=== PATIENT | female | born 1930 | race Caucasian/White ===

== ENCOUNTER 2017-03-03 16:55 | Inpatient (IN) | payer OTHER ==
[~2017-03-03] VITALS: Ht 151.1 cm; Wt 87.8 kg
[~2017-03-03 16:55] MED LIST: ASPI-435 PO; BRIM0.1S OPB; CHOL100027 PO; CITA20TA4 PO; CODCAP4 PO; LOVA20TA4 PO; LSN25 PO; PROMSYP2 PO; PRT/20 PO; TIMO0.2534 OPB; TNR25 PO
[2017-03-03] MEDS ORDERED: LATA0.5S OP (17:12)
--- NOTE | 2017-03-03 17:33 | EMERGENCY ROOM VISIT NOTE ---
History Report prepared by Simi: Iraida Mayo Under the Supervision of: Dr. Michelle Mina D.O. First contact with patient: 17:09 Chief Complaint: CARDIAC ASSESSMENT Stated Complaint: CHEST DISCOMFORT, AFIB Nursing Triage Summary: Patient arrived to [facility] via ALS from [place]. Per EMS "She came to the station today, asking us to check her blood pressure. She told us that she hasn't been feeling herself today and thought that her blood pressure was high. Upon assessment, her BP was elevated and she was in atrial fibrillation. She does not have a history of a.fib. She was pale, clammy and complaining of some chest discomfort so Dr. Cardoso requested we bring her here." History of Present Illness The patient is a 86 year old female who presents to the Emergency Room with complaints of constant chest pressure beginning yesterday. The patient notes left arm pain beginning yesterday. She reports increased swelling in her legs, a headache, and "hot flashes" beginning yesterday. She also reports leg hand numbness when she reads a book or the newspaper. Patient in room with her daughter. The patient went to EMS in [place] to get her blood pressure checked. Per nursing note, EMS stated the patient's blood pressure was high and she was in atrial fibrillation. Per nursing note, EMS stated the patient was pale, clammy and complaining of some chest discomfort so Dr. Cardoso requested they bring the patient to the ED. The patient states she was on Plavix a couple years ago because she reports she had "a spot on her brain". She recently had a CT of her head to check the spot and she reports it was unchanged. She was stopped on the Plavix because it was causing her GI problems. Presently, the patient only takes a baby aspirin daily. The patient saw her PCP a month ago and she states her heart and everything was normal. The patient has a history of fibromyalgia and arthritis. She denies any cardiac history besides she believes she was once told she had a possible heart murmur. Pt denies headache, change in vision, fevers, shortness of breath, nausea, vomiting, diarrhea, pain with urination, and melena. Patient is a poor and difficult historian. Source of History: patient Onset: yesterday Position: chest Quality: pressure Timing: constant Associated Symptoms: + headache, + diaphoresis, + chest pain, + numbness, No fevers, No SOB, No nausea, No vomiting, No diarrhea, No urinary symptoms Review of Systems See HPI for pertinent positives & negatives. A total of 10 systems reviewed and were otherwise negative. Past Medical & Surgical Medical Problems: (1) Atrial fibrillation, new onset (2) GERD (gastroesophageal reflux disease) Family History FH: [place] (myocardial infarction) Social History Smoking Status: Never Smoker Marital Status: Occupation Status: retired Current/Historical Medications Scheduled Aspirin (Aspirin 81), 81 MG PO DAILY Atorvastatin (Lipitor), 20 MG PO DAILY Carvedilol (Coreg), 1 TAB PO BID Cholecalciferol (Vitamin D 1000 Unit), 3,000 INTER.UNIT PO DAILY Citalopram Hydrobromide (Citalopram Hydrobromide), 20 MG PO DAILY Cod Liver Oil (Cod Liver Oil), 1 CAP PO DAILY Fluticasone Propionate (Nasal) (Flonase Allergy Relief), 2 SPRAYS KATINA DAILY Latanoprost (Xalatan 0.005% Oph Eugenia), 1 DROPS OP HS Lisinopril (Prinivil), 1 TAB PO DAILY Meloxicam (Mobic), 1 TAB PO DAILY Methimazole (Methimazole ), 5 MG PO TID Pantoprazole (Protonix), 20 MG PO DAILY Timolol Maleate 0.5% Oph (Timoptic 0.5% Oph), 1 DROP OPB BID Valacyclovir (Valtrex), 1 TAB PO DAILY Scheduled PRN Albuterol Hfa (Ventolin Hfa), 2 PUFFS INH Q6H PRN for SOB/Wheezing Tramadol (Ultram), 50 MG PO Q6H PRN for Pain Allergies Coded Allergies: Codeine (Verified Adverse Reaction, Intermediate, HALLUCINATION, 03/03/17) Morphine and Related (Verified Adverse Reaction, Intermediate, HALLUCINATION, 03/03/17) Physical Exam Vital Signs Date Time Temp Pulse Resp B/P (MAP) Pulse Ox O2 Delivery O2 Flow Rate FiO2 03/03/17 18:03 102 22 173/110 97 Room Air 03/03/17 17:25 78 03/03/17 16:55 97 Room Air 03/03/17 16:55 36.5 87 20 196/141 97 Room Air 1/22/18 16:55 97 Room Air Physical Exam GENERAL: alert, well appearing, well nourished, no distress, non-toxic EYE EXAM: normal conjunctiva, PERRL and EOM's grossly intact OROPHARYNX: no exudate, no erythema, lips, buccal mucosa, and tongue normal and mucous membranes are moist NECK: supple, no nuchal rigidity, no adenopathy, non-tender LUNGS: Clear to auscultation. Normal chest wall mechanics HEART: Irregular rhythm. no gallop/rub. Soft RIGOBERTO. ABDOMEN: abdomen soft, non-tender, normo-active bowel sounds, no masses, no rebound or guarding. BACK: Back is symmetrical on inspection and there is no deformity, no midline tenderness, no CVA tenderness. SKIN: no rashes and no bruising UPPER EXTREMITIES: upper extremities are grossly normal. LOWER EXTREMITIES: No pitting edema. NEURO EXAM: Normal sensorium, cranial nerves II-XII grossly intact, normal speech, no gross weakness of arms, no gross weakness of legs. Medical Decision & Procedures ER Provider Diagnostic Interpretation: Radiology results have been interpreted by the radiologist and reviewed by me. CHEST ONE VIEW PORTABLE FINDINGS: Cardiac silhouette is again enlarged, unchanged. Atherosclerosis of the aorta. There is no pneumothorax, pleural effusion, focal airspace consolidation or overt pulmonary edema. Chronic mild blunting of the bilateral costophrenic angles, likely secondary to atelectasis/scarring. Bones of the chest appear grossly intact. IMPRESSION: Cardiomegaly without acute process. The above report was generated using voice recognition software. It may contain grammatical, syntax or spelling errors. Electronically signed by: Ivan Lewis M.D. Laboratory Results Test 03/03/17 16:30 03/03/17 17:55 03/03/17 18:11 Total Bilirubin 1.1 mg/dl (0.2-1) Aspartate Amino Transf (AST/SGOT) 21 U/L (15-37) Alanine Aminotransferase (ALT/SGPT) 24 U/L (12-78) Alkaline Phosphatase 93 U/L (45-117) Pro-B-Type Natriuretic Peptide 978 pg/ml (0-1800) Total Protein 6.9 gm/dl (6.4-8.2) Albumin 3.5 gm/dl (3.4-5.0) Globulin 3.4 gm/dl (2.5-4.0) Albumin/Globulin Ratio 1.0 (0.9-2) Chemistry Specimen Hemolysis Prothrombin Time 10.1 SECONDS (9.0-12.0) Prothromb Time International Ratio 1.0 (0.9-1.1) D-Dimer 340 ug/L FEU (0-500) Urine Color YELLOW Urine Appearance CLEAR (CLEAR) Urine pH 7.5 (4.5-7.5) Urine Specific Winn 1.013 (1.000-1.030) Urine Protein NEG (NEG) Urine Glucose (UA) NEG (NEG) Urine Ketones NEG (NEG) Urine Occult Blood NEG (NEG) Urine Nitrite NEG (NEG) Urine Bilirubin NEG (NEG) Urine Urobilinogen NEG (NEG) Urine Leukocyte Esterase SMALL (NEG) Urine WBC (Auto) 5-10 /hpf (0-5) Urine RBC (Auto) 5-10 /hpf (0-4) Urine Hyaline Casts (Auto) 0 /lpf (0-5) Urine Epithelial Cells (Auto) >30 /lpf (0-5) Urine Bacteria (Auto) NEG (NEG) Laboratory results per my review. Medications Administered Medications (Trade) Dose Ordered Sig/Hao Route Start Time Stop Time Status Last Admin Dose Admin Metoprolol Tartrate (Lopressor Iv) 2.5 mg Q6 PRN IV 03/03/17 19:15 04/02/17 19:14 03/03/17 22:29 2.5 MG ECG Indication: chest pain Rate (beats per minute): 85 Rhythm: atrial fibrillation Findings: no acute ischemic change, other (normal axis, normal QRS, normal QTC) Change: EKG interpreted by me. ED Course 1710: The patient was evaluated in room B7. A complete history and physical exam was performed. 1841: I reviewed the patient's case with Dr. Hazel. He will evaluate the patient for further management. Medical Decision Differential diagnosis: Etiologies such as cardiac ischemia, aortic dissection, pulmonary embolism, pneumonia, pneumothorax, musculoskeletal, infections, pericarditis, myocarditis , esophageal rupture, gastrointestinal, as well as others were entertained. Pt well appearing here despite complaints. VS stable, HR rate controlled despite new a.fib. Discussed with pt need for additional evaluation, she verbalized understanding. Did not start anticoagulation empirically as pt with hx of GI bleed on plavix and would want hospitalist and cardiology input and discussion with family. Likely pt partially rate controlled due to regular use of atenolol. Doubt occult infectious etiology. Hx of thyroid dysfunction. No recurrent pain while here. No increased WOB, denies SOB. No evidence of CVA. Medication Reconcilliation Current Medication List: was personally reviewed by me Blood Pressure Screening Patient's blood pressure: Elevated blood pressure Blood pressure disposition: Referred to PCP (evaluated further by hospitalist) Consults Time Called: 1838 Consulting Physician: Dr. Hazel Returned Call: 1841 I reviewed the patient's case with Dr. Hazel. He will evaluate the patient for further management. Impression Primary Impression: New onset atrial fibrillation Additional Impression: Chest pain Scribe Attestation The scribe's documentation has been prepared under my direction and personally reviewed by me in its entirety. I confirm that the note above accurately reflects all work, treatment, procedures, and medical decision making performed by me. Departure Information Dispostion Being Evaluated By Hospitalist Prescriptions Fluticasone Propionate (Nasal) (Flonase Allergy Relief) 50 Mcg/Act Spr 2 SPRAYS KATINA DAILY, #1 Prov: Bandar Klein MD 03/03/17 Meloxicam (MOBIC) 15 Mg Tab 1 TAB PO DAILY for 30 Days, #30 TAB 1 Refill Prov: Bandar Klein MD 03/03/17 Tramadol (Ultram) 50 Mg Tab 50 MG PO Q6H Y for Pain, #30 TAB Prov: Bandar Klein MD 03/03/17 Albuterol Hfa (VENTOLIN HFA) 200 Puffs/40113 Mcg Aers 2 PUFFS INH Q6H Y for SOB/Wheezing, #1 INHALER Prov: Bandar Klein MD 03/03/17 Methimazole (Methimazole ) 5 Mg Tab 5 MG PO TID, #30 Prov: Bandar Klein MD 03/03/17 Carvedilol (COREG) 6.25 Mg Tab 1 TAB PO BID for 30 Days, #60 TAB Prov: Bandar Klein MD 03/03/17 Lisinopril (PRINIVIL) 10 Mg Tab 1 TAB PO DAILY for 30 Days, #30 TAB Prov: Bandar Klein MD 03/03/17 Atorvastatin (LIPITOR) 20 Mg Tab 20 MG PO DAILY, #30 TAB Prov: Bandar Klein MD 03/03/17 Valacyclovir (Valtrex) 500 Mg Tab 1 TAB PO DAILY for 30 Days, #30 TAB Prov: Bandar Klein MD 03/03/17 Referrals Taz Garcia M.D. (PCP) Patient Instructions My [facility] Problem Qualifiers Additional Impression: Chest pain Chest pain type: unspecified Qualified Codes: R07.9 - Chest pain, unspecified
[2017-03-03 17:35] LABS: BASO % 0.1 %; BASO ABS # 0.01 K/uL (0-0.2); EOS % 2.4 %; EOS ABS # 0.17 K/uL (0-0.5); HEMATOCRIT 42.5 % (37-47); HEMOGLOBIN 14.7 g/dL (12.0-16.0); IG# 0.01 K/uL (0.00-0.02); LYMPH % 33.5 %; LYMPH ABS # 2.38 K/uL (1.2-3.4); MEAN CELL VOLUME 92.4 fL (80-100); MEAN CORPUSCULAR HGB CONC 34.6 g/dl (32-36); MEAN PLATELET VOLUME 10.9 fL (7.4-10.4); MONO % 10.7 %; MONO ABS # 0.76 K/uL (0.11-0.59); NEUT % 53.2 %; NEUT ABS # 3.77 K/uL (1.4-6.5); PLATELET COUNT 207 K/uL (130-400); RED CELL DISTRIBUTION WIDTH CV 13.5 % (11.5-14.5); RED CELL DISTRIBUTION WIDTH SD 45.6 fL (36.4-46.3)
--- NOTE | 2017-03-03 17:44 | DIAGNOSTIC IMAGING REPORT ---
CHEST ONE VIEW PORTABLE HISTORY: 86 years-old Female chest pain acute atypical chest pain with atrial fibrillation COMPARISON: Chest radiograph 08/16/2013 TECHNIQUE: Portable AP view of the chest FINDINGS: Cardiac silhouette is again enlarged, unchanged. Atherosclerosis of the aorta. There is no pneumothorax, pleural effusion, focal airspace consolidation or overt pulmonary edema. Chronic mild blunting of the bilateral costophrenic angles, likely secondary to atelectasis/scarring. Bones of the chest appear grossly intact. IMPRESSION: Cardiomegaly without acute process. The above report was generated using voice recognition software. It may contain grammatical, syntax or spelling errors. Electronically signed by: Ivan Lewis M.D. 03/03/2017 5:43 PM Dictated Date/Time: 03/03/2017 5:41 PM
[2017-03-03 17:55] LABS: ALBUMIN 3.5 gm/dl (3.4-5.0); ALT/SGPT 24 U/L (12-78); AST/SGOT 21 U/L (15-37); BLOOD UREA NITROGEN 16 mg/dl (7-18); CARBON DIOXIDE 29 mmol/L (21-32); CREATININE 0.79 mg/dl (0.60-1.20); GLUCOSE 128 mg/dl (70-99); POTASSIUM 4.2 mmol/L (3.5-5.1); SODIUM 136 mmol/L (136-145)
[2017-03-03 18:19] LABS: ALKALINE PHOSPHATASE 93 U/L (45-117); TOTAL PROTEIN 6.9 gm/dl (6.4-8.2)
[2017-03-03] MEDS ORDERED: NITROGLYCERIN 0.4 MG SL PER TAB CHARGE SL PRN (19:15)
[2017-03-03] MEDS ORDERED: ONDANSETRON INJ 2 MG/ML 2 ML VIAL IV PRN (19:15)
[2017-03-03] MEDS ORDERED: ACETAMINOPHEN 325 MG TAB PO PRN (19:15)
[2017-03-03] MEDS ORDERED: POLYETHYLENE (MIRALAX) 17 GM PACK PO PRN (19:15)
[2017-03-03] MEDS ORDERED: METOPROLOL TARTRATE 1 MG/ML VIAL IV PRN (19:15)
[2017-03-03] MEDS ORDERED: ALUMINUM/MAGNESIUM/SIMETH (MAALOX MAX) 30 ML UDC PO PRN (19:15)
[2017-03-03] MEDS ORDERED: ATOR-22 PO (19:22)
[2017-03-03] MEDS ORDERED: MELO15TA10 PO (19:22)
[2017-03-03] MEDS ORDERED: VALA500T60 PO (19:22)
[2017-03-03] MEDS ORDERED: LISI10TA PO (19:22)
[2017-03-03] MEDS ORDERED: METH-589 PO (19:22)
[2017-03-03] MEDS ORDERED: FLUT0.15 NAE (19:22)
[2017-03-03] MEDS ORDERED: CARV6.252 PO (19:22)
[2017-03-03] MEDS ORDERED: TRAM-10 PO (19:22)
[2017-03-03] MEDS ORDERED: VNTHFA/IN INH (19:22)
[2017-03-03] MEDS ORDERED: ALBUTEROL HFA 8 GM INHALER INH PRN (19:30)
[2017-03-03] MEDS ORDERED: TRAMADOL HCL 50 MG TAB PO PRN (19:30)
--- NOTE | 2017-03-03 20:16 | HISTORY & PHYSICAL EXAMINATION ---
DATE OF ADMISSION: 03/03/2017 CHIEF COMPLAINT: New onset AFib. HISTORY OF PRESENT ILLNESS: This 86-year-old female with past medical history significant for GERD, fibromyalgia, metabolic syndrome, general osteoarthrosis, history of TIAs, hyperglycemia, diaphragmatic hernia, glaucoma, hyperlipidemia, obesity, history of sinus polyps, history of depression, history of hypertension, history of multinodular goiter, hyperthyroidism, herpes simplex infection, presents with not feeling well since last 2 days, having tightness in her lower chest, dull aching type, with also some tenderness in her breast region, went to the clinic and was sent here and was found to have new onset atrial fibrillation. Blood pressure is running high but heart rates under control. Except for the band-like pain, tightness in her lower chest, denies any other chest pain or shortness of breath. Occasionally has some cough attributes it to dry mouth.Has some headaches, . No blurred vision. No nausea, no vomiting. No runny nose, no earache, no sore throat, no difficulty swallowing. No abdominal pain. Appetite is okay. Normal bowel and bladder movements. Ambulates with the help of walker at home. Lives alone but daughters and sons check on her and she also has an aide coming to help her. Currently resting comfortably. ALLERGIES: MORPHINE AND LATEX. PAST MEDICAL HISTORY: As mentioned above. PAST SURGICAL HISTORY: EGD with biopsies, hemorrhoid ligations, EGD biopsy of the thyroid, partial hysterectomy, cataract surgeries, cholecystectomy, umbilical hernia repair. MEDICATIONS: The patient is on Celexa 20 mg p.o. daily, Protonix 20 mg p.o. daily, valacyclovir 500 mg p.o. daily, atorvastatin 20 mg p.o. daily, lisinopril 10 mg p.o. daily, vitamin D 2000 units p.o. daily, Coreg 6.25 mg p.o. b.i.d., methimazole 5 mg p.o. t.i.d., albuterol 2 puffs every 6 hours p.r.n., tramadol 50 mg p.o. q. 6 hours p.r.n., meloxicam 50 mg p.o. daily, Flonase 2 sprays each nostril daily, latanoprost daily, timolol 1 drop in both eyes twice daily, aspirin 81 mg p.o. daily, cod liver oil 1000 mg p.o. daily. FAMILY HISTORY: Significant for brother had lung cancer. Sister has lung cancer, breast cancer, diabetes and ALS. SOCIAL HISTORY: . Never smoked. No alcohol use. No drug use. Currently lives alone but daughters and sons come and check on her and has an aide at home. REVIEW OF SYMPTOMS: As per HPI. Rest of review of symptoms negative. PHYSICAL EXAMINATION: GENERAL: The patient is obese, not in distress. VITAL SIGNS: Temperature 36.5, pulse 72-102, respiratory rate 22, blood pressure 173/110, oxygen 97% on room air. HEENT: No pallor, no icterus. Pupils equal, round and reactive to light. NECK: No JVD, no neck masses, no carotid bruits. CARDIOVASCULAR: S1, S2 heard, irregular rhythm, no murmur, no gallop. RESPIRATORY: Clear to auscultation bilaterally. No wheezing, no crackles. ABDOMEN: Soft. Bowel sounds present. Nontender. No distention. CENTRAL NERVOUS SYSTEM: Cranial nerves II-XII grossly intact. Nonfocal. EXTREMITIES: No lower extremity edema present. Some calf tenderness. LABORATORY DATA: WBC 7.1, hemoglobin 14.7, hematocrit 42.5, platelets 207. Sodium 136, potassium 4.2, chloride 103, bicarbonate 29, BUN 16, creatinine 0.7, serum glucose 128, calcium 9, magnesium 2.1, total bilirubin 1.1, AST 21, ALT 24, alkaline phosphatase 93, troponin I less than 0.015. BNP 978. TSH 0.084. PT 10.1, INR 1. D-dimer 340. Urinalysis positive for small leukocyte esterase. Chest x-ray, cardiomegaly without acute process. EKG, AFib with rate of 85. No acute ST changes seen. ASSESSMENT AND PLAN: This is an 86-year-old female who presents with new onset atrial fibrillation. 1. New onset atrial fibrillation. The patient is already on Coreg, her rate is under control, which will be continued. The patient has a history of GI bleeds in the past, about 2 years ago. The patient and daughter are okay with low-dose heparin and starting on Coumadin. The patient to discuss about anticoagulation with cardiology in a.m. We will follow the echocardiogram. Monitor on tele floor. 2. Some chest tightness, like a band in the lower part of the chest, involving also the breast. Follow serial cardiac enzymes and echocardiogram. If there is concern, we will do further imaging studies. 3. The patient has depression and fibromyalgia. Continue Celexa. 4. History of hypothyroidism and multinodular goiter, on methimazole. Follow TSH and free T4 levels. 5. History of hypertension. Continue Coreg and lisinopril. Currently, blood pressure is running high. We will place on IV Lopressor p.r.n. 6. History of herpes virus infection. Continue valacyclovir. 7. History of gastroesophageal reflux disease. Continue Protonix. 8. Hyperlipidemia. Continue statin. 9. Sinusitis. Continue Flonase. 10. Hyperglycemia. We will follow HbA1c levels. 11. Lower extremity edema. We will check for any DVT. Deep venous thrombosis prophylaxis, on IV heparin. DISPOSITION: Admit to tele floor. PT and OT prior to discharge planning. Level 1 full code. Social service to help with discharge planning. [facility]
[2017-03-03] MEDS ORDERED: HEPARIN IV LOW DOSE NO BOLUS SCH (20:20)
[2017-03-03] MEDS ORDERED: HEPARIN 25000 UNIT/500 ML D5W ONE (20:31)
[2017-03-03 20:58] LABS: PTT PATIENT 27.1 SECONDS (21.0-31.0)
--- NOTE | 2017-03-03 21:30 | DIAGNOSTIC IMAGING REPORT ---
VENOUS DOPPLER LWR EXT BILA HISTORY: Pain. Edema. DVT? COMPARISON STUDY: None. FINDINGS: There is normal compressibility, flow, and augmentation within the bilateral lower extremity deep venous systems. IMPRESSION: No DVT within the right or left lower extremity. The above report was generated using voice recognition software. It may contain grammatical, syntax or spelling errors. Electronically signed by: Daniele Austin M.D. 03/03/2017 9:29 PM Dictated Date/Time: 03/03/2017 9:28 PM
[2017-03-03 21:39] VITALS: BP 164/78; PULSE 99; TEMP 37; O2SAT 94
[2017-03-03 21:40] VITALS: BP 164/78; PULSE 99; TEMP 37; O2SAT 94; Ht 151.1 cm; Wt 87.8 kg
[2017-03-03] MEDS: HEPARIN 25,000 UNIT/500ML D5W 500 ML IV PRN (22:21)
[2017-03-03] MEDS: METHIMAZOLE 5 MG TAB PO SCH (22:37)
[2017-03-03] MEDS: CARVEDILOL 6.25 MG TAB PO SCH (22:37)
[2017-03-03] MEDS: LATANOPROST 0.005% OP SOLN 2.5 ML BTL OP SCH (22:38)
[2017-03-03] MEDS: TIMOLOL MALEATE 0.5% OP SOLN 5 ML BTL OPB SCH (22:38)
[2017-03-04] VITALS (7 sets, daily range): BP systolic 126–147; BP diastolic 64–86; PULSE 77–86; TEMP 36.5–37; O2SAT 94–96
[2017-03-04] MEDS ORDERED: SODIUM CHLORIDE 0.65% NA SOLN 45 ML (OCEAN) PRN (00:45)
[2017-03-04 05:12] LABS: BASO % 0.2 %; BASO ABS # 0.01 K/uL (0-0.2); EOS % 1.3 %; EOS ABS # 0.08 K/uL (0-0.5); HEMATOCRIT 39.4 % (37-47); HEMOGLOBIN 13.7 g/dL (12.0-16.0); IG# 0.01 K/uL (0.00-0.02); LYMPH % 30.9 %; LYMPH ABS # 1.93 K/uL (1.2-3.4); MEAN CELL VOLUME 91.4 fL (80-100); MEAN CORPUSCULAR HEMOGLOBIN 31.8 pg (25-34); MEAN CORPUSCULAR HGB CONC 34.8 g/dl (32-36); MONO % 10.7 %; MONO ABS # 0.67 K/uL (0.11-0.59); NEUT % 56.7 %; NEUT ABS # 3.55 K/uL (1.4-6.5); PLATELET COUNT 183 K/uL (130-400); RED CELL DISTRIBUTION WIDTH CV 13.3 % (11.5-14.5); RED CELL DISTRIBUTION WIDTH SD 44.6 fL (36.4-46.3); WHITE BLOOD COUNT 6.25 K/uL (4.8-10.8)
[2017-03-04 05:21] LABS: PTT PATIENT 38.3 SECONDS (21.0-31.0)
[2017-03-04 05:30] LABS: CALCIUM 8.5 mg/dl (8.5-10.1); CREATININE 0.59 mg/dl (0.60-1.20); POTASSIUM 3.9 mmol/L (3.5-5.1)
[2017-03-04] MEDS ORDERED: HEPARIN IV BOLUS 4,000 UNIT in SYRINGE 0 ML IV ONE (05:45)
[2017-03-04] MEDS: FLUTICASONE PROPIONATE NA SPR 16 GM BTL NAE SCH (08:28)
[2017-03-04] MEDS: TIMOLOL MALEATE 0.5% OP SOLN 5 ML BTL OPB SCH ×2 (08:29→20:13)
[2017-03-04] MEDS: METHIMAZOLE 5 MG TAB PO SCH ×3 (08:29→20:15)
[2017-03-04] MEDS: ATORVASTATIN 20 MG TAB PO SCH (08:30)
[2017-03-04] MEDS: CARVEDILOL 6.25 MG TAB PO SCH ×2 (08:30→20:15)
[2017-03-04] MEDS: CITALOPRAM 20 MG TAB PO SCH (08:30)
[2017-03-04] MEDS: ASPIRIN 81 MG ECTAB PO SCH (08:31)
[2017-03-04] MEDS: LISINOPRIL 10 MG TAB PO SCH (08:31)
[2017-03-04] MEDS: CHOLECALCIFEROL 1000 INTER.UNIT TAB PO SCH (08:31)
[2017-03-04] MEDS: PANTOprazole SOD 40 MG TAB PO SCH (08:31)
--- NOTE | 2017-03-04 08:35 | ECHOCARDIOGRAM REPORT ---
*NOTICE TO RECEIVING [employer] This information is strictly Confidential and protected under [place] law. [place] law prohibits you from making any further disclosure of this information unless further disclosure is expressly permitted by the written consent of the person to whom it pertains or is authorized by law. A general authorization for the release of medical or other information is not sufficient for this purpose. Hospital accepts no responsibility if the information is made available to any other person, INCLUDING THE PATIENT. Interpretation Summary * Name: MARK BRYANT Study Date: 03/04/2017 06:40 AM BP: 141/79 mmHg * Patient Location: [id number] HR: 77 * : 1930 (M/d/yyyy) Gender: Female Height: 59 in * Age: 86 yrs Ethnicity: [place] Weight: 200 lb * Ordering Physician: Bandar Klein * Referring Physician: Self, Referred * Performed By: Jacob Delatorre RCS * * Reason For Study: A-FIB * BSA: 1.8 m2 * -- Conclusions -- * Normal LV chamber size and wall thickness. * Normal LV systolic function, EF 60-65%. * No segmental left ventricular wall motion abnormalities are noted. * Diastolic dyfunction is present based on left atrial enlargement. * Aortic valve sclerosis mild, without significant aortic valvular stenosis. * Mild mitral regurgitation. * Mild tricuspid regurgitation. * Moderate left atrial enlargement. Procedure Details * A complete two-dimensional transthoracic echocardiogram was performed (2D, M-mode, Doppler and color flow Doppler). Left Ventricle * The left ventricle is normal in size. * There is normal left ventricular wall thickness. * Ejection Fraction = 60-65%. * Left ventricular systolic function is normal. * No segmental left ventricular wall motion abnormalities are noted. * The left ventricular wall motion is normal. Right Ventricle * The right ventricular cavity size is normal (basal dimension <4.2 cm in right ventricular apical 4-chamber view). * The right ventricular systolic function is normal as assessed by tricuspid annular plane systolic excursion (TAPSE) (normal >1.5 cm). Atria * The left atrium is moderately dilated. * Right atrial size is normal. * No ASD detected; PFO is not assessed. Mitral Valve * The mitral valve is normal in structure and function. Tricuspid Valve * The tricuspid valve anatomy is normal. * There is no tricuspid stenosis. * There is mild tricuspid regurgitation. Aortic Valve * The aortic valve is trileaflet. * Aortic valve sclerosis mild, without significant aortic valvular stenosis. * There is no significant aortic regurgitation. Pulmonic Valve * The pulmonary valve is not well seen, but the Doppler examination is normal without significant regurgitation or stenosis. Great Vessels * The aortic root is normal size. Pericardium/Pleural * There is no pericardial effusion. MMode 2D Measurements and Calculations IVSd 1.0 cm IVSs 1.2 cm LVIDd 4.8 cm LVIDs 3.2 cm LVPWd 0.94 cm LVPWs 1.2 cm IVS/LVPW 1.1 FS 33.2 % EDV(Teich) 107.7 ml ESV(Teich) 41.2 ml EF(Teich) 61.7 % EDV(cubed) 110.9 ml ESV(cubed) 33.0 ml EF(cubed) 70.2 % % IVS thick 18.9 % % LVPW thick 24.9 % LV mass(C)d 166.6 grams LV mass(C)dI 90.4 grams/m\S\2 LV mass(C)s 119.5 grams LV mass(C)sI 64.8 grams/m\S\2 SV(Teich) 66.5 ml SI(Teich) 36.1 ml/m\S\2 SV(cubed) 77.8 ml SI(cubed) 42.2 ml/m\S\2 Ao root diam 2.9 cm Ao root area 6.7 cm\S\2 ACS 1.4 cm LA dimension 5.2 cm asc Aorta Diam 3.0 cm LA/Ao 1.8 EDV(MOD-sp4) 58.6 ml ESV(MOD-sp4) 27.7 ml EF(MOD-sp4) 52.8 % EDV(MOD-sp2) 82.7 ml ESV(MOD-sp2) 24.7 ml EF(MOD-sp2) 70.2 % SV(MOD-sp4) 30.9 ml SI(MOD-sp4) 16.8 ml/m\S\2 SV(MOD-sp2) 58.0 ml SI(MOD-sp2) 31.5 ml/m\S\2 Doppler Measurements and Calculations MV E max dax 111.1 cm/sec MV P1/2t max dax 122.5 cm/sec MV P1/2t 77.6 msec MVA(P1/2t) 2.8 cm\S\2 MV dec slope 462.6 cm/sec\S\2 MV dec time 0.21 sec Ao V2 max 143.2 cm/sec Ao max PG 8.2 mmHg Ao max PG (full) 5.2 mmHg LV V1 max PG 3.0 mmHg LV V1 max 86.8 cm/sec PA V2 max 110.7 cm/sec PA max PG 4.9 mmHg TR max dax 318.7 cm/sec
[2017-03-04] MEDS ORDERED: NON-FORMULARY MEDICATION (Cod Liver Oil 1 CAP) PO SCH (09:00)
--- NOTE | 2017-03-04 09:55 | Cardiology Consultation ---
Cardiology Consultation Date of Consultation: Mar 04, 2017 Requesting Physician: Latoya Attending Phone Engineer: Jose G (Daniele Byrne PA-C) History of Present Illness Ms. Ko is an 86 year old female who is being seen at the request of Dr. Klein. Reason for consultation is new atrial fibrillation. Patient notes three weeks of constant band like discomfort from the center of her chest around her back bilaterally. Yesterday she developed left upper outer arm discomfort. While visiting at [facility] she decided to go to the ambulance center to get checked out. At the center she was found to be hypertension and in atrial fibrillation. It was recommended that she seek further care and thus she was transported to the [facility] ER via ambulance for further evaluation and treatment. She was seen in the ER by Dr. Mina and was admitted by Dr. Klein with new onset atrial fibrillation. She was admitted to telemetry started on low-dose heparin. Her heart rates have been well controlled on her home dose of carvedilol. (Daniele Byrne PA-C) Past Medical/Surgical History Problem List: Transient ischemic attack, 08/22/03 Mild bilateral internal carotid artery disease Hypertension Dyslipidemia Thyroid nodule, multinodular goiter Hyperthyroidism Vitamin D deficiency Osteoporosis Glaucoma Neuralgia and neuritis Irritable bowel syndrome Generalized anxiety disorder Depression Large sliding and paraesophageal hiatal hernia Gastroparesis Esophageal reflux Diverticulosis Cataract extraction Incarcerated umbilical hernia repair in 1999 Cholecystectomy Partial hysterectomy (Daniele Byrne PA-C) Family History FH: [place] (myocardial infarction) Mother at 90. Father at 96. One brother and one sister with lung cancer. (Daniele Byrne PA-C) FH: [place] (myocardial infarction) (Michi Araiza, D.[place]) Social History Nonsmoker. No alcohol. . Seven children. Smoking Status: Never Smoker Marital Status: Housing Status: lives alone Occupation: retired (Daniele Byrne PA-C) Review Of Systems General: Fibromyalgia. Arrthritis. No fever, chills, or soaking night sweats Endocrinology: Hypothyroidism. Goiter. On methimazole. Hyperglycemia. HEENT: Glasses. Cataracts. Glaucoma. Chronic sinusitis. Cardiovascular: See above. PAGE. No near syncope or syncope. Pulmonary: No hemoptysis. No history of asthma, COPD, emphysema, or PE. Gastrointestinal: See above. Skin: History of HSV. Musculoskeletal: Fibromyalgia. Arthritis. Uses a walker. Peripheral edema. Neurological: ? TIA versus CVA. No history of seizures Complete review of systems is as stated above, negative, or noncontributory. (Daniele Byrne PA-C) Allergies Coded Allergies: Codeine (Verified Adverse Reaction, Intermediate, HALLUCINATION, 03/03/17) Morphine and Related (Verified Adverse Reaction, Intermediate, HALLUCINATION, 03/03/17) Medications Reported Home Medications Medications Dose Route/Sig Max Daily Dose Days Date Category Flonase Allergy Relief (Fluticasone Propionate (Nasal)) 50 Mcg/Act Spr 2 Sprays KATINA DAILY 03/03/17 Rx Mobic (Meloxicam) 15 Mg Tab 1 Tab PO DAILY 30 03/03/17 Rx Ultram (Tramadol HCl) 50 Mg Tab 50 Mg PO Q6H PRN 03/03/17 Rx Ventolin Hfa (Albuterol) 200 Puffs/24003 Mcg Aers 2 Puffs INH Q6H PRN 03/03/17 Rx Methimazole (Methimazole) 5 Mg Tab 5 Mg PO TID 03/03/17 Rx Coreg (Carvedilol) 6.25 Mg Tab 1 Tab PO BID 30 03/03/17 Rx Prinivil (Lisinopril) 10 Mg Tab 1 Tab PO DAILY 30 03/03/17 Rx Lipitor (Atorvastatin Calcium) 20 Mg Tab 20 Mg PO DAILY 03/03/17 Rx Valtrex (Valacyclovir HCl) 500 Mg Tab 1 Tab PO DAILY 30 03/03/17 Rx Xalatan 0.005% Oph Eugenia (Latanoprost) 0.005 % Eugenia 1 Drops OP HS 03/03/17 Reported Cod Liver Oil 1 Cap Cap 1 Cap PO DAILY 08/16/13 Reported Vitamin D 1000 Unit (Cholecalciferol) 1,000 Unit Cap 3,000 Inter.unit PO DAILY 08/16/13 Reported Protonix (Pantoprazole Sodium) 20 Mg Tab 20 Mg PO DAILY 08/16/13 Reported Aspirin 81 (Aspirin) 81 Mg Tab 81 Mg PO DAILY 08/16/13 Reported Timoptic 0.5% Oph (Timolol Maleate) Soln 1 Drop OPB BID 08/16/13 Reported Citalopram Hydrobromide 20 Mg Tab 20 Mg PO DAILY 08/16/13 Reported (Daniele Byrne PA-C) Physical Exam Vital Signs (Last 8hrs): Last 8 Hrs Date Time Temp Pulse Resp B/P (MAP) Pulse Ox O2 Delivery O2 Flow Rate FiO2 03/04/17 08:14 36.7 86 18 144/71 (95) 95 Room Air 03/04/17 04:00 Room Air 03/04/17 03:03 36.8 77 17 141/79 (99) 94 Room Air General Appearance: Alert and Oriented x3. NAD. [place] HEENT: Normocephalic Atraumatic. PER. EOMI. Conjunctiva and sclera clear Neck: Supple. No carotid bruits noted. No overt JVD. Respiratory: Breath sounds clear to auscultation bilaterally. No w/r/r. Chest: There is reproducible chest wall and left upper arm pain with palpation. Cardiovascular: Irregularly irregular in the 70's. No murmur appreciated. PMI was not palpated. Abdomen: +BS. Soft. Nontender. No masses. Extremities: Minimal edema. Lymphedematous changes. no clubbing. No cyanosis. Distal pulses 2/4 bilaterally. Neuro: No focal deficits. Psychiatric: Normal affect. (Daniele Byrne PA-C) Data Last 24 Hours Test 03/03/17 16:30 03/03/17 17:55 03/03/17 18:11 03/04/17 03:00 White Blood Count 7.10 K/uL Red Blood Count 4.60 M/uL Hemoglobin 14.7 g/dL Hematocrit 42.5 % Mean Corpuscular Volume 92.4 fL Mean Corpuscular Hemoglobin 32.0 pg Mean Corpuscular Hemoglobin Concent 34.6 g/dl Platelet Count 207 K/uL Mean Platelet Volume 10.9 fL Neutrophils (%) (Auto) 53.2 % Lymphocytes (%) (Auto) 33.5 % Monocytes (%) (Auto) 10.7 % Eosinophils (%) (Auto) 2.4 % Basophils (%) (Auto) 0.1 % Neutrophils # (Auto) 3.77 K/uL Lymphocytes # (Auto) 2.38 K/uL Monocytes # (Auto) 0.76 K/uL Eosinophils # (Auto) 0.17 K/uL Basophils # (Auto) 0.01 K/uL RDW Standard Deviation 45.6 fL RDW Coefficient of Variation 13.5 % Immature Granulocyte % (Auto) 0.1 % Immature Granulocyte # (Auto) 0.01 K/uL Sodium Level 136 mmol/L Potassium Level 4.2 mmol/L Chloride Level 103 mmol/L Carbon Dioxide Level 29 mmol/L Anion Gap 4.0 mmol/L Blood Urea Nitrogen 16 mg/dl Creatinine 0.79 mg/dl Est Creatinine Clear Calc Drug Dose 52.7 ml/min Estimated GFR () 79.7 Estimated GFR (Non- 68.7 BUN/Creatinine Ratio 20.8 Random Glucose 128 mg/dl Calcium Level 9.0 mg/dl Magnesium Level 2.1 mg/dl Total Bilirubin 1.1 mg/dl Aspartate Amino Transf (AST/SGOT) 21 U/L Alanine Aminotransferase (ALT/SGPT) 24 U/L Alkaline Phosphatase 93 U/L Troponin I < 0.015 ng/ml < 0.015 ng/ml Pro-B-Type Natriuretic Peptide 978 pg/ml Total Protein 6.9 gm/dl Albumin 3.5 gm/dl Globulin 3.4 gm/dl Albumin/Globulin Ratio 1.0 Thyroid Stimulating Hormone (TSH) 0.084 uIu/ml Chemistry Specimen Hemolysis Prothrombin Time 10.1 SECONDS Prothromb Time International Ratio 1.0 Activated Partial Thromboplast Time 27.1 SECONDS Partial Thromboplastin Ratio 1.0 D-Dimer 340 ug/L FEU Urine Color YELLOW Urine Appearance CLEAR Urine pH 7.5 Urine Specific [place] 1.013 Urine Protein NEG Urine Glucose (UA) NEG Urine Ketones NEG Urine Occult Blood NEG Urine Nitrite NEG Urine Bilirubin NEG Urine Urobilinogen NEG Urine Leukocyte Esterase SMALL Urine WBC (Auto) 5-10 /hpf Urine RBC (Auto) 5-10 /hpf Urine Hyaline Casts (Auto) 0 /lpf Urine Epithelial Cells (Auto) >30 /lpf Urine Bacteria (Auto) NEG Test 03/04/17 04:51 03/04/17 07:56 White Blood Count 6.25 K/uL Red Blood Count 4.31 M/uL Hemoglobin 13.7 g/dL Hematocrit 39.4 % Mean Corpuscular Volume 91.4 fL Mean Corpuscular Hemoglobin 31.8 pg Mean Corpuscular Hemoglobin Concent 34.8 g/dl Platelet Count 183 K/uL Mean Platelet Volume 10.0 fL Neutrophils (%) (Auto) 56.7 % Lymphocytes (%) (Auto) 30.9 % Monocytes (%) (Auto) 10.7 % Eosinophils (%) (Auto) 1.3 % Basophils (%) (Auto) 0.2 % Neutrophils # (Auto) 3.55 K/uL Lymphocytes # (Auto) 1.93 K/uL Monocytes # (Auto) 0.67 K/uL Eosinophils # (Auto) 0.08 K/uL Basophils # (Auto) 0.01 K/uL RDW Standard Deviation 44.6 fL RDW Coefficient of Variation 13.3 % Immature Granulocyte % (Auto) 0.2 % Immature Granulocyte # (Auto) 0.01 K/uL Activated Partial Thromboplast Time 38.3 SECONDS Partial Thromboplastin Ratio 1.5 Sodium Level 139 mmol/L Potassium Level 3.9 mmol/L Chloride Level 105 mmol/L Carbon Dioxide Level 29 mmol/L Anion Gap 5.0 mmol/L Blood Urea Nitrogen 12 mg/dl Creatinine 0.59 mg/dl Est Creatinine Clear Calc Drug Dose 70.6 ml/min Estimated GFR () 97.5 Estimated GFR (Non- 84.2 BUN/Creatinine Ratio 20.1 Random Glucose 134 mg/dl Estimated Average Glucose 126 mg/dl Hemoglobin A1c 6.0 % Calcium Level 8.5 mg/dl Magnesium Level 2.1 mg/dl Thyroid Stimulating Hormone (TSH) 0.112 uIu/ml Free Thyroxine 1.21 ng/dl Free Triiodothyronine 4.06 pg/ml March 04, 2017 TTE Interpretation Summary ([facility], Dr. Araiza): Normal LV chamber size and wall thickness. Normal LV systolic function, EF 60-65%. No segmental left ventricular wall motion abnormalities are noted. Diastolic dysfunction is present based on left atrial enlargement. Aortic valve sclerosis mild, without significant aortic valvular stenosis. Mild mitral regurgitation. Mild tricuspid regurgitation. Moderate left atrial enlargement. Admission CXR:Cardiomegaly without acute process Venous Duplex: No DVT within the right or left lower extremity. EKG dated and timed 04-MAR-2017 @ 07:20:08: Atrial fibrillation at 69 bpm EKG dated and timed 03-MAR-2017 @ 16:54:05: Atrial fibrillation at 85 bpm with premature ventricular or aberrantly conducted complexes. Telemetry: Atrial fibrillation with a controlled ventricular response. (Daniele Byrne PA-C) Assessment & Plan Atypical chest pain EKG's without acute changes. Troponin negative x 2 Echo with normal LV systolic function without segmental left ventricular wall motion abnormalities Chest and arm discomfort are reproduced with palpation of the chest and left arm New onset atrial fibrillation Duration unknown Ventricular response is well controlled. CHADS2 Score 4/6. [id number] Score 6 points Recommend initiation of Coumadin anticoagulation with an INR goal of 2.0 to 3.0 Hypertension. Controlled. Dyslipidemia. Continue statin (Daniele Byrne PA-C) Cardiology attending: Pt seen and examined, agree with findings and assessment as per Daniele Culver. Reproducible musculoskeletal chest pain with no further cardiac work up necessary. Incidental finding of atrial fibrillation, given lack of symptoms and rate being controlled with start coumadin for stroke prevention and follow a rate control strategy. Pt agrees with this plan, will discuss with her son as well in the AM. (Michi Araiza D.O.)
[2017-03-04 11:49] LABS: PTT PATIENT 63.4 SECONDS (21.0-31.0)
[2017-03-04] MEDS ORDERED: WARFARIN SOD 5 MG TAB PO SCH (16:00)
--- NOTE | 2017-03-04 17:42 | Progress Note ---
Internal Med Progress Note Date of Service: Mar 04, 2017. Provider Documentation: SUBJECTIVE: Patient is comfortable. Denies pain of the anterior chest. Has back pain which is tender to palpation OBJECTIVE: Exam: General: no acute distress NECK: No JVD, no neck masses, no carotid bruits. CARDIOVASCULAR: S1, S2 heard, irregular rhythm, no murmur, no gallop. RESPIRATORY: Clear to auscultation bilaterally. No wheezing, no crackles. ABDOMEN: Soft. Bowel sounds present. Nontender. No distention. BACK: back pain which is tender to palpation over the right upper back CENTRAL NERVOUS SYSTEM: Cranial nerves II-XII grossly intact. Nonfocal. EXTREMITIES: no calf tenderness ASSESSMENT & PLAN: This is an 86-year-old female who presents with new onset atrial fibrillation. Atrial fibrillation with a controlled ventricular response. -continue carvedilol -on heparin drip, bridge to Coumadin Atypical chest pain -EKG's without acute changes. -Troponin negative x 3 -Echo with normal LV systolic function without segmental left ventricular wall motion abnormalities depression and fibromyalgia: Continue Celexa.Tramadol prn Hypertension. Continue Coreg and lisinopril. IV Lopressor prn History of hypothyroidism and multinodular goiter, on methimazole Hyperlipidemia. Continue statin HbA1c is only 6 Sinusitis. Continue Flonase. History of herpes virus infection. Continue valacyclovir. History of gastroesophageal reflux disease. Continue Protonix. No DVT within the right or left lower extremity DVT ppx: on heparin drip, bridge to Coumadin Vital Signs: Date Time Temp Pulse Resp B/P (MAP) Pulse Ox O2 Delivery O2 Flow Rate FiO2 03/04/17 16:00 Room Air 03/04/17 15:36 36.7 79 20 131/86 (101) 95 Room Air 03/04/17 12:03 36.7 85 18 130/64 (86) 95 Room Air 03/04/17 12:00 Room Air 03/04/17 08:14 36.7 86 18 144/71 (95) 95 Room Air 03/04/17 08:00 Room Air 03/04/17 04:00 Room Air 03/04/17 03:03 36.8 77 17 141/79 (99) 94 Room Air 03/04/17 00:15 37.0 83 17 132/83 (99) 96 Room Air 03/04/17 00:00 Room Air 03/03/17 22:29 99 164/78 03/03/17 21:40 37.0 99 20 164/78 94 Room Air 03/03/17 21:39 37.0 99 20 164/78 (106) 94 Room Air 03/03/17 19:58 88 20 172/101 98 Room Air 03/03/17 18:03 102 22 173/110 97 Room Air Lab Results: Results Past 24 Hours Test 03/03/17 17:55 03/03/17 18:11 03/04/17 03:00 03/04/17 04:51 Range/Units Prothrombin Time 10.1 9.0-12.0 SECONDS Prothromb Time International Ratio 1.0 0.9-1.1 Activated Partial Thromboplast Time 27.1 38.3 21.0-31.0 SECONDS Partial Thromboplastin Ratio 1.0 1.5 D-Dimer 340 0-500 ug/L FEU Urine Color YELLOW Urine Appearance CLEAR CLEAR Urine pH 7.5 4.5-7.5 Urine Specific [place] 1.013 1.000-1.030 Urine Protein NEG NEG Urine Glucose (UA) NEG NEG Urine Ketones NEG NEG Urine Occult Blood NEG NEG Urine Nitrite NEG NEG Urine Bilirubin NEG NEG Urine Urobilinogen NEG NEG Urine Leukocyte Esterase SMALL NEG Urine WBC (Auto) 5-10 0-5 /hpf Urine RBC (Auto) 5-10 0-4 /hpf Urine Hyaline Casts (Auto) 0 0-5 /lpf Urine Epithelial Cells (Auto) >30 0-5 /lpf Urine Bacteria (Auto) NEG NEG Troponin I < 0.015 0-0.045 ng/ml White Blood Count 6.25 4.8-10.8 K/uL Red Blood Count 4.31 4.2-5.4 M/uL Hemoglobin 13.7 12.0-16.0 g/dL Hematocrit 39.4 37-47 % Mean Corpuscular Volume 91.4 80-100 fL Mean Corpuscular Hemoglobin 31.8 25-34 pg Mean Corpuscular Hemoglobin Concent 34.8 32-36 g/dl Platelet Count 183 130-400 K/uL Mean Platelet Volume 10.0 7.4-10.4 fL Neutrophils (%) (Auto) 56.7 % Lymphocytes (%) (Auto) 30.9 % Monocytes (%) (Auto) 10.7 % Eosinophils (%) (Auto) 1.3 % Basophils (%) (Auto) 0.2 % Neutrophils # (Auto) 3.55 1.4-6.5 K/uL Lymphocytes # (Auto) 1.93 1.2-3.4 K/uL Monocytes # (Auto) 0.67 0.11-0.59 K/uL Eosinophils # (Auto) 0.08 0-0.5 K/uL Basophils # (Auto) 0.01 0-0.2 K/uL RDW Standard Deviation 44.6 36.4-46.3 fL RDW Coefficient of Variation 13.3 11.5-14.5 % Immature Granulocyte % (Auto) 0.2 % Immature Granulocyte # (Auto) 0.01 0.00-0.02 K/uL Sodium Level 139 136-145 mmol/L Potassium Level 3.9 3.5-5.1 mmol/L Chloride Level 105 98-107 mmol/L Carbon Dioxide Level 29 21-32 mmol/L Anion Gap 5.0 3-11 mmol/L Blood Urea Nitrogen 12 7-18 mg/dl Creatinine 0.59 0.60-1.20 mg/dl Est Creatinine Clear Calc Drug Dose 70.6 ml/min Estimated GFR () 97.5 Estimated GFR (Non- 84.2 BUN/Creatinine Ratio 20.1 10-20 Random Glucose 134 70-99 mg/dl Estimated Average Glucose 126 mg/dl Hemoglobin A1c 6.0 4.5-5.6 % Calcium Level 8.5 8.5-10.1 mg/dl Magnesium Level 2.1 1.8-2.4 mg/dl Thyroid Stimulating Hormone (TSH) 0.112 0.300-4.500 uIu/ml Free Thyroxine 1.21 0.80-1.60 ng/dl Free Triiodothyronine 4.06 2.30-4.20 pg/ml Test 03/04/17 11:10 Range/Units Activated Partial Thromboplast Time 63.4 21.0-31.0 SECONDS Partial Thromboplastin Ratio 2.4 Troponin I < 0.015 0-0.045 ng/ml Thyroxine (T4) 8.6 4.5-10.9 mcg/dl Microbiology Results 03/04/17 Urine Culture, Received Pending
[2017-03-04] MEDS: LATANOPROST 0.005% OP SOLN 2.5 ML BTL OP SCH (20:12)
[2017-03-05] MEDS: HEPARIN 25,000 UNIT/500ML D5W 500 ML IV PRN (01:05)
[2017-03-05 04:28] VITALS: BP 126/77; PULSE 71; TEMP 36.7; O2SAT 95
[2017-03-05 05:04] LABS: BASO % 0.4 %; BASO ABS # 0.02 K/uL (0-0.2); EOS % 2.7 %; EOS ABS # 0.15 K/uL (0-0.5); HEMATOCRIT 39.4 % (37-47); HEMOGLOBIN 13.6 g/dL (12.0-16.0); IG# 0.01 K/uL (0.00-0.02); LYMPH % 35.2 %; LYMPH ABS # 1.96 K/uL (1.2-3.4); MEAN CELL VOLUME 91.6 fL (80-100); MEAN CORPUSCULAR HEMOGLOBIN 31.6 pg (25-34); MEAN CORPUSCULAR HGB CONC 34.5 g/dl (32-36); MEAN PLATELET VOLUME 9.9 fL (7.4-10.4); MONO % 11.8 %; MONO ABS # 0.66 K/uL (0.11-0.59); NEUT % 49.7 %; NEUT ABS # 2.77 K/uL (1.4-6.5); PLATELET COUNT 165 K/uL (130-400); RED CELL DISTRIBUTION WIDTH CV 13.7 % (11.5-14.5); RED CELL DISTRIBUTION WIDTH SD 45.4 fL (36.4-46.3); WHITE BLOOD COUNT 5.57 K/uL (4.8-10.8)
[2017-03-05 05:31] LABS: PTT PATIENT 51.3 SECONDS (21.0-31.0)
[2017-03-05 05:34] LABS: CALCIUM 8.5 mg/dl (8.5-10.1); CREATININE 0.63 mg/dl (0.60-1.20); POTASSIUM 3.9 mmol/L (3.5-5.1)
[2017-03-05 06:59] VITALS: BP 125/75; PULSE 70; TEMP 36.7; O2SAT 94
[2017-03-05] MEDS: ASPIRIN 81 MG ECTAB PO SCH (08:28)
[2017-03-05] MEDS: CITALOPRAM 20 MG TAB PO SCH (08:28)
[2017-03-05] MEDS: METHIMAZOLE 5 MG TAB PO SCH ×2 (08:28→14:19)
[2017-03-05] MEDS: PANTOprazole SOD 40 MG TAB PO SCH (08:28)
[2017-03-05] MEDS: CARVEDILOL 6.25 MG TAB PO SCH (08:28)
[2017-03-05] MEDS: ATORVASTATIN 20 MG TAB PO SCH (08:28)
[2017-03-05] MEDS: LISINOPRIL 10 MG TAB PO SCH (08:29)
[2017-03-05] MEDS: CHOLECALCIFEROL 1000 INTER.UNIT TAB PO SCH (08:29)
[2017-03-05] MEDS: FLUTICASONE PROPIONATE NA SPR 16 GM BTL NAE SCH (08:29)
[2017-03-05] MEDS: TIMOLOL MALEATE 0.5% OP SOLN 5 ML BTL OPB SCH (08:30)
--- NOTE | 2017-03-05 08:48 | Clinical Documentation Query ---
CLINICAL DOCUMENTATION QUERY Dr. PRADO, In your clinical opinion is this patient being managed for: ( ) Hypertensive crisis ( ) Not Agree ( ) Other explanation of clinical findings (Please Explain) ( ) Unable to determine (Please Define) (x) Need to Discuss Was managed for hypertensive urgency. Patient's blood pressure improved. The medical record reflects the following clinical findings, treatment, and risk factors. Clinical Indicators: 86 yo female presenting with increased LE edema, chest pressure, headache, hot flashes, and L hand numbness. EMS reported pt was pale, clammy and reporting chest discomfort. BP found to be 196/141. Treatment: EKG, baseline CBC and CMP, IV lopressor, ECHO, cardiology consult, tele monitoring, coumadin, heparin gtt, Risk Factors: age, new onset A fib, hx HTN, hyperlipidemia, obesity A hypertensive crisis occurs when blood pressure elevates rapidly and severely enough to potentially cause organ damage. Patients may present with symptoms of acute headache, shortness of breath, epistaxis, or marked anxiety. Immediate evaluation is needed to assess organ function, and determine appropriate treatment. Please clarify and document your clinical opinion in the progress notes and discharge summary. Terms such as "probable", "suspected", "likely", "questionable", "possible", or "still to be ruled out" are acceptable. IF IN AGREEMENT, YOU MUST DOCUMENT ABOVE DIAGNOSTIC STATEMENT IN DAILY PROGRESS NOTES AND DISCHARGE SUMMARY. This document is not part of the patient's record. Thank You, Genesis Jolley RN [phone]
--- NOTE | 2017-03-05 09:34 | Cardiology Follow-Up ---
Subjective General Date of Service: Mar 05, 2017. Chief Complaint: Atrial fibrillation Pt evaluation today including: conversation w/ patient, physical exam, chart review, lab review, review of studies, review of inpatient medication list History of Present Illness Patient seen and examined. No complaints. Chest discomfort has resolved. Still with some left upper arm discomfort that was reproducible with palpation. No shortness of breath. No palpitations. No lightheadedness or dizziness. No near syncope or syncope. Telemetry: Atrial fibrillation with a controlled ventricular response. Currently in the 80's. Bradycardia down to 43 bpm overnight. No significant pauses. EKG this morning at 06:13:17 revealed atrial fibrillation at 65 bpm. QTc 413 ms. Allergies Coded Allergies: Codeine (Verified Adverse Reaction, Intermediate, HALLUCINATION, 03/03/17) Morphine and Related (Verified Adverse Reaction, Intermediate, HALLUCINATION, 03/03/17) Social History Smoking Status: Never Smoker Hx Tobacco Use In Past Year?: No Hx Alcohol Use - Type And Amou: No Hx Substance Use - Type And Am: No Problem List Medical Problems: (1) Chest pain Status: Acute (2) New onset atrial fibrillation Status: Acute Physical Exam Vital Signs Last Vital Signs Documentation Date Time Temp Pulse Resp B/P (MAP) Pulse Ox O2 Delivery O2 Flow Rate FiO2 03/05/17 06:59 36.7 70 18 125/75 (92) 94 Room Air Physical Exam Constitutional: General Apperance: overweight Level of Distress: NAD Psychiatric: Mental Status: active & alert Orientation: to time, to place, to person Memory: recent memory normal, remote memory normal Head: normocephalic, atraumatic Eyes: Pupils: PERRLA Neck: pertinent finding (Normal JVP) Lungs: Respiratory effort: no dyspnea Auscultation: no wheezing, no rales/crackles, no rhonchi, deminished air movement Cardiovascular: Heart Auscultation: no rubs, II/ RIGOBERTO, irregular rate rhythm Peripheral Pulses: Radial Pulse: normal on the left, normal on the right Dorsalis Pedis Pulse: decreased on the left, decreased on the right Abdomen: Bowel Sounds: normal Inspection & Palpation: soft Extremities: no cyanosis, no edema, no clubbing Neurologic: Cranial Nerves: grossly intact Assessment and Plan Assessment and Plan Atypical chest and arm discomfort. EKG's without acute changes. Troponin negative Echo with normal LV systolic function, without segmental left ventricular wall motion abnormalities Chest and arm discomfort reproduced with palpation New onset atrial fibrillation Duration unknown Ventricular response remains well controlled. CHADS2 Score 4/6. [id number] Score 6 points Coumadin anticoagulation initiated on 03/04/2017. INR goal of 2.0 to 3.0. Risks and benefits of heparin bridge to proper Coumadin anticoagulation discussed. Declines Lovenox. Anxious for discharge. Understands risks. OK to discharge on Coumadin, patient to follow-up with the [facility] in [place] on Friday. [facility] referral placed. Hypertension. Controlled. Dyslipidemia. Continue statin Outpatient cardiology follow-up in [place] in 2-3 weeks; office aware - will contact patient Cardiology attending: Pt seen and examined, agree with findings and assessment as per Daniele Culver. Pt declining Lovenox bridge and anxious for discharge. Coumadin clinic and cardiology follow up scheduled. Ok to d/c from cardiac standpoint. Laboratory Results Last 24 Hours Test 03/04/17 11:10 03/05/17 04:47 Activated Partial Thromboplast Time 63.4 SECONDS 51.3 SECONDS Partial Thromboplastin Ratio 2.4 2.0 Troponin I < 0.015 ng/ml Thyroxine (T4) 8.6 mcg/dl White Blood Count 5.57 K/uL Red Blood Count 4.30 M/uL Hemoglobin 13.6 g/dL Hematocrit 39.4 % Mean Corpuscular Volume 91.6 fL Mean Corpuscular Hemoglobin 31.6 pg Mean Corpuscular Hemoglobin Concent 34.5 g/dl Platelet Count 165 K/uL Mean Platelet Volume 9.9 fL Neutrophils (%) (Auto) 49.7 % Lymphocytes (%) (Auto) 35.2 % Monocytes (%) (Auto) 11.8 % Eosinophils (%) (Auto) 2.7 % Basophils (%) (Auto) 0.4 % Neutrophils # (Auto) 2.77 K/uL Lymphocytes # (Auto) 1.96 K/uL Monocytes # (Auto) 0.66 K/uL Eosinophils # (Auto) 0.15 K/uL Basophils # (Auto) 0.02 K/uL RDW Standard Deviation 45.4 fL RDW Coefficient of Variation 13.7 % Immature Granulocyte % (Auto) 0.2 % Immature Granulocyte # (Auto) 0.01 K/uL Prothrombin Time 10.8 SECONDS Prothromb Time International Ratio 1.0 Sodium Level 139 mmol/L Potassium Level 3.9 mmol/L Chloride Level 105 mmol/L Carbon Dioxide Level 28 mmol/L Anion Gap 6.0 mmol/L Blood Urea Nitrogen 16 mg/dl Creatinine 0.63 mg/dl Est Creatinine Clear Calc Drug Dose 64.8 ml/min Estimated GFR () 95.5 Estimated GFR (Non- 82.4 BUN/Creatinine Ratio 26.0 Random Glucose 131 mg/dl Calcium Level 8.5 mg/dl Magnesium Level 2.0 mg/dl
[2017-03-05 11:38] VITALS: BP 110/77; PULSE 68; TEMP 37.1; O2SAT 95
--- NOTE | 2017-03-05 13:39 | Progress Note ---
Internal Med Progress Note Date of Service: Mar 05, 2017. Provider Documentation: SUBJECTIVE: Patient is comfortable. Speaking in full sentences. Denies new complaints and wishes to be discharged today OBJECTIVE: Exam: General: no acute distress NECK: No JVD, no neck masses, no carotid bruits. CARDIOVASCULAR: S1, S2 heard, irregular rhythm, no murmur, no gallop. RESPIRATORY: Clear to auscultation bilaterally. No wheezing, no crackles. ABDOMEN: Soft. Bowel sounds present. Nontender. No distention. CENTRAL NERVOUS SYSTEM: Cranial nerves II-XII grossly intact. Nonfocal. EXTREMITIES: no calf tenderness ASSESSMENT & PLAN: This is an 86-year-old female who presents with new onset atrial fibrillation with controlled ventricular response. No DVT within the right or left lower extremity on ultrasound of lower extremities. Patient was initially started on heparin drip on 03/04/17 with plans to bridge to coumadin. Patient was re- evaluated by cardiology service on 03/05/17 and there was discussion between cardiology service and patient about anticoagulation plan. Patient anxious for hospital discharge and declined Lovenox as the alternative for IV heparin. As per cardiology service, patient can be discharged with Coumadin alone for anticoagulation. The goal INR is 2 to 3. Patient has anticoagulation clinic follow up appointment 03/06/2017 6:15 PM [facility] [address] [facility] Patient has primary care follow up 03/07/2017 3:00 PM Taz Garcia MD Internal Medicine [facility] Patient has cardiology follow up 03/18/2017 9:00 AM Jono Jessica MD Cardiology [facility] Patient should continue carvedilol medication for heart rate control Echocardiogram conclusions on this admission Normal LV chamber size and wall thickness. Normal LV systolic function, EF 60-65%. No segmental left ventricular wall motion abnormalities are noted. Diastolic dyfunction is present based on left atrial enlargement. Aortic valve sclerosis mild, without significant aortic valvular stenosis. Mild mitral regurgitation. Mild tricuspid regurgitation. Moderate left atrial enlargement. Besides atrial fibrillation, patient was evaluated for atypical chest pain (non cardiac chest pain) likely due to musculoskeletal soreness Patient has history of depression and fibromyalgia: Continue Celexa.Tramadol prn Hypertension. Continue Coreg and lisinopril. History of hypothyroidism and multinodular goiter, on methimazole Hyperlipidemia. Continue statin Sinusitis. Continue Flonase. History of herpes virus infection. Continue valacyclovir. History of gastroesophageal reflux disease. Continue Protonix. Discharge to home Vital Signs: Date Time Temp Pulse Resp B/P (MAP) Pulse Ox O2 Delivery O2 Flow Rate FiO2 03/05/17 11:38 37.1 68 16 110/77 (88) 95 Room Air 03/05/17 08:00 Room Air 03/05/17 06:59 36.7 70 18 125/75 (92) 94 Room Air 03/05/17 04:28 36.7 71 18 126/77 (93) 95 Room Air 03/05/17 04:00 Room Air 03/05/17 00:00 Room Air 03/04/17 23:51 36.5 82 20 126/64 (84) 95 Room Air 03/04/17 19:00 Room Air 03/04/17 18:55 36.7 83 20 147/79 (101) 96 Room Air 03/04/17 16:00 Room Air 03/04/17 15:36 36.7 79 20 131/86 (101) 95 Room Air Lab Results: Results Past 24 Hours Test 03/05/17 04:47 Range/Units White Blood Count 5.57 4.8-10.8 K/uL Red Blood Count 4.30 4.2-5.4 M/uL Hemoglobin 13.6 12.0-16.0 g/dL Hematocrit 39.4 37-47 % Mean Corpuscular Volume 91.6 80-100 fL Mean Corpuscular Hemoglobin 31.6 25-34 pg Mean Corpuscular Hemoglobin Concent 34.5 32-36 g/dl Platelet Count 165 130-400 K/uL Mean Platelet Volume 9.9 7.4-10.4 fL Neutrophils (%) (Auto) 49.7 % Lymphocytes (%) (Auto) 35.2 % Monocytes (%) (Auto) 11.8 % Eosinophils (%) (Auto) 2.7 % Basophils (%) (Auto) 0.4 % Neutrophils # (Auto) 2.77 1.4-6.5 K/uL Lymphocytes # (Auto) 1.96 1.2-3.4 K/uL Monocytes # (Auto) 0.66 0.11-0.59 K/uL Eosinophils # (Auto) 0.15 0-0.5 K/uL Basophils # (Auto) 0.02 0-0.2 K/uL RDW Standard Deviation 45.4 36.4-46.3 fL RDW Coefficient of Variation 13.7 11.5-14.5 % Immature Granulocyte % (Auto) 0.2 % Immature Granulocyte # (Auto) 0.01 0.00-0.02 K/uL Prothrombin Time 10.8 9.0-12.0 SECONDS Prothromb Time International Ratio 1.0 0.9-1.1 Activated Partial Thromboplast Time 51.3 21.0-31.0 SECONDS Partial Thromboplastin Ratio 2.0 Sodium Level 139 136-145 mmol/L Potassium Level 3.9 3.5-5.1 mmol/L Chloride Level 105 98-107 mmol/L Carbon Dioxide Level 28 21-32 mmol/L Anion Gap 6.0 3-11 mmol/L Blood Urea Nitrogen 16 7-18 mg/dl Creatinine 0.63 0.60-1.20 mg/dl Est Creatinine Clear Calc Drug Dose 64.8 ml/min Estimated GFR () 95.5 Estimated GFR (Non- 82.4 BUN/Creatinine Ratio 26.0 10-20 Random Glucose 131 70-99 mg/dl Calcium Level 8.5 8.5-10.1 mg/dl Magnesium Level 2.0 1.8-2.4 mg/dl
[2017-03-05] MEDS ORDERED: CMD5 PO (13:50)
--- NOTE | 2017-03-05 13:53 | Discharge Instructions ---
Discharge Instructions Date of Service Mar 05, 2017. Admission Reason for Admission: Atrial Fibrillation, New Onset Discharge Discharge Diagnosis / Problem: new onset atrial fibrillation, on coumadin, atypical chest pain Discharge Goals Goal(s): Improve disease control Activity Recommendations Activity Limitations: per Instructions/Follow-up section Shower/Bathe: no limitations . Instructions / Follow-Up Instructions / Follow-Up This is an 86-year-old female who presents with new onset atrial fibrillation with controlled ventricular response. No DVT within the right or left lower extremity on ultrasound of lower extremities. Patient was initially started on heparin drip on 03/04/17 with plans to bridge to coumadin. Patient was re- evaluated by cardiology service on 03/05/17 and there was discussion between cardiology service and patient about anticoagulation plan. Patient anxious for hospital discharge and declined Lovenox as the alternative for IV heparin. As per cardiology service, patient can be discharged with Coumadin alone for anticoagulation. The goal INR is 2 to 3. Patient has anticoagulation clinic follow up appointment 03/06/2017 6:15 PM [facility] has primary care follow up 03/07/2017 3:00 PM Taz Garcia MD Internal Medicine [facility] Patient has cardiology follow up 03/18/2017 9:00 AM Jono Jessica MD Cardiology [facility] Patient should continue carvedilol medication for heart rate control Echocardiogram conclusions on this admission Normal LV chamber size and wall thickness. Normal LV systolic function, EF 60-65%. No segmental left ventricular wall motion abnormalities are noted. Diastolic dyfunction is present based on left atrial enlargement. Aortic valve sclerosis mild, without significant aortic valvular stenosis. Mild mitral regurgitation. Mild tricuspid regurgitation. Moderate left atrial enlargement. Besides atrial fibrillation, patient was evaluated for atypical chest pain (non cardiac chest pain) likely due to musculoskeletal soreness Patient has history of depression and fibromyalgia: Continue Celexa.Tramadol prn Hypertension. Continue Coreg and lisinopril. History of hypothyroidism and multinodular goiter, on methimazole Hyperlipidemia. Continue statin Sinusitis. Continue Flonase. History of herpes virus infection. Continue valacyclovir. History of gastroesophageal reflux disease. Continue Protonix. Discharge to home Current Hospital Diet Patient's current hospital diet: AHA Diet (Heart Healthy) Discharge Diet Recommended Diet: AHA Diet (Heart Healthy) Pending Studies Studies pending at discharge: no Laboratory Results 03/05/17 04:47 Red Blood Count 4.30, Mean Corpuscular Volume 91.6, Mean Corpuscular Hemoglobin 31.6, Mean Corpuscular Hemoglobin Concent 34.5, Mean Platelet Volume 9.9, Neutrophils (%) (Auto) 49.7, Lymphocytes (%) (Auto) 35.2, Monocytes (%) (Auto) 11.8, Eosinophils (%) (Auto) 2.7, Basophils (%) (Auto) 0.4, Neutrophils # (Auto ) 2.77, Lymphocytes # (Auto) 1.96, Monocytes # (Auto) 0.66, Eosinophils # (Auto ) 0.15, Basophils # (Auto) 0.02 03/05/17 04:47 Test 03/03/17 16:30 03/03/17 17:55 03/03/17 18:11 03/04/17 04:51 Total Bilirubin 1.1 mg/dl (0.2-1) Aspartate Amino Transf (AST/SGOT) 21 U/L (15-37) Alanine Aminotransferase (ALT/SGPT) 24 U/L (12-78) Alkaline Phosphatase 93 U/L (45-117) Pro-B-Type Natriuretic Peptide 978 pg/ml (0-1800) Total Protein 6.9 gm/dl (6.4-8.2) Albumin 3.5 gm/dl (3.4-5.0) Globulin 3.4 gm/dl (2.5-4.0) Albumin/Globulin Ratio 1.0 (0.9-2) Chemistry Specimen Hemolysis D-Dimer 340 ug/L FEU (0-500) Urine Color YELLOW Urine Appearance CLEAR (CLEAR) Urine pH 7.5 (4.5-7.5) Urine Specific Edinburgh 1.013 (1.000-1.030) Urine Protein NEG (NEG) Urine Glucose (UA) NEG (NEG) Urine Ketones NEG (NEG) Urine Occult Blood NEG (NEG) Urine Nitrite NEG (NEG) Urine Bilirubin NEG (NEG) Urine Urobilinogen NEG (NEG) Urine Leukocyte Esterase SMALL (NEG) Urine WBC (Auto) 5-10 /hpf (0-5) Urine RBC (Auto) 5-10 /hpf (0-4) Urine Hyaline Casts (Auto) 0 /lpf (0-5) Urine Epithelial Cells (Auto) >30 /lpf (0-5) Urine Bacteria (Auto) NEG (NEG) Estimated Average Glucose 126 mg/dl Hemoglobin A1c 6.0 % (4.5-5.6) Thyroid Stimulating Hormone (TSH) 0.112 uIu/ml (0.300-4.500) Free Thyroxine 1.21 ng/dl (0.80-1.60) Free Triiodothyronine 4.06 pg/ml (2.30-4.20) Test 03/04/17 11:10 03/05/17 04:47 Troponin I < 0.015 ng/ml (0-0.045) Thyroxine (T4) 8.6 mcg/dl (4.5-10.9) White Blood Count 5.57 K/uL (4.8-10.8) Red Blood Count 4.30 M/uL (4.2-5.4) Hemoglobin 13.6 g/dL (12.0-16.0) Hematocrit 39.4 % (37-47) Mean Corpuscular Volume 91.6 fL (80-100) Mean Corpuscular Hemoglobin 31.6 pg (25-34) Mean Corpuscular Hemoglobin Concent 34.5 g/dl (32-36) Platelet Count 165 K/uL (130-400) Mean Platelet Volume 9.9 fL (7.4-10.4) Neutrophils (%) (Auto) 49.7 % Lymphocytes (%) (Auto) 35.2 % Monocytes (%) (Auto) 11.8 % Eosinophils (%) (Auto) 2.7 % Basophils (%) (Auto) 0.4 % Neutrophils # (Auto) 2.77 K/uL (1.4-6.5) Lymphocytes # (Auto) 1.96 K/uL (1.2-3.4) Monocytes # (Auto) 0.66 K/uL (0.11-0.59) Eosinophils # (Auto) 0.15 K/uL (0-0.5) Basophils # (Auto) 0.02 K/uL (0-0.2) RDW Standard Deviation 45.4 fL (36.4-46.3) RDW Coefficient of Variation 13.7 % (11.5-14.5) Immature Granulocyte % (Auto) 0.2 % Immature Granulocyte # (Auto) 0.01 K/uL (0.00-0.02) Prothrombin Time 10.8 SECONDS (9.0-12.0) Prothromb Time International Ratio 1.0 (0.9-1.1) Activated Partial Thromboplast Time 51.3 SECONDS (21.0-31.0) Partial Thromboplastin Ratio 2.0 Anion Gap 6.0 mmol/L (3-11) Est Creatinine Clear Calc Drug Dose 64.8 ml/min Estimated GFR () 95.5 Estimated GFR (Non- 82.4 BUN/Creatinine Ratio 26.0 (10-20) Calcium Level 8.5 mg/dl (8.5-10.1) Magnesium Level 2.0 mg/dl (1.8-2.4) Date/Time Source Procedure Growth Status 03/04/17 00:00 Urine , Clean Catch Urine Culture - Final MORE THAN THREE TYPES OF ORGANISMS CA... Complete Hemoglobin A1c Test 03/04/17 04:51 Range/Units Estimated Average Glucose 126 mg/dl Hemoglobin A1c 6.0 H 4.5-5.6 % Medical Emergencies . Who to Call and When: Medical Emergencies: If at any time you feel your situation is an emergency, please call 911 immediately. . Non-Emergent Contact Non-Emergency issues call your: Primary Care Provider, Project Controls Specialist . . "Provider Documentation" section prepared by Nixon Price. . VTE Core Measure Inpt VTE Proph given/why not?: Warfarin (Coumadin), Other Anticoagulation ( heparin IV)
--- NOTE | 2017-03-05 14:38 | Discharge Summary ---
Discharge Summary Date of Service Mar 05, 2017. Discharge Summary Admission Date: Mar 03, 2017 at 19:17 Discharge Date: Mar 05, 2017 Discharge Disposition: Home Principal Diagnosis: new onset atrial fibrillation, on coumadin, atypical chest pain Secondary Diagnoses/Problems: patient was also managed for hypertensive urgency on admission which resolved after initial presentation with medication Consultations: Cardiology Medication Reconciliation New Medications: Warfarin Sod (Coumadin) 5 Mg Tab 5 MG PO DAILY@16 for 30 Days, #30 TAB Continued Medications: Albuterol Hfa (Ventolin Hfa) 200 Puffs/70876 Mcg Aers 2 PUFFS INH Q6H PRN for SOB/Wheezing, #1 INHALER Aspirin (Aspirin 81) 81 Mg Tab 81 MG PO DAILY Atorvastatin (Lipitor) 20 Mg Tab 20 MG PO DAILY, #30 TAB Carvedilol (Coreg) 6.25 Mg Tab 1 TAB PO BID for 30 Days, #60 TAB Cholecalciferol (Vitamin D 1000 Unit) 1,000 Unit Cap 3000 INTER.UNIT PO DAILY, CAP Citalopram Hydrobromide (Citalopram Hydrobromide) 20 Mg Tab 20 MG PO DAILY Cod Liver Oil (Cod Liver Oil) 1 Cap Cap 1 CAP PO DAILY Fluticasone Propionate (Nasal) (Flonase Allergy Relief) 50 Mcg/Act Spr 2 SPRAYS KATINA DAILY, #1 Latanoprost (Xalatan 0.005% Oph Eugenia) 0.005 % Eugenia 1 DROPS OP HS, #2.5 ML 3 Refills Lisinopril (Prinivil) 10 Mg Tab 1 TAB PO DAILY for 30 Days, #30 TAB Methimazole (Methimazole ) 5 Mg Tab 5 MG PO TID, #30 Pantoprazole (Protonix) 20 Mg Tab 20 MG PO DAILY, #30 TAB Timolol Maleate 0.5% Oph (Timoptic 0.5% Oph) Soln 1 DROP OPB BID Tramadol (Ultram) 50 Mg Tab 50 MG PO Q6H PRN for Pain, #30 TAB Valacyclovir (Valtrex) 500 Mg Tab 1 TAB PO DAILY for 30 Days, #30 TAB Discontinued Medications: Meloxicam (Mobic) 15 Mg Tab 1 TAB PO DAILY for 30 Days, #30 TAB 1 Refill Admission Information HPI (per Admitting provider): CHIEF COMPLAINT: New onset AFib. HISTORY OF PRESENT ILLNESS: This 86-year-old female with past medical history significant for GERD, fibromyalgia, metabolic syndrome, general osteoarthrosis, history of TIAs, hyperglycemia, diaphragmatic hernia, glaucoma, hyperlipidemia, obesity, history of sinus polyps, history of depression, history of hypertension, history of multinodular goiter, hyperthyroidism, herpes simplex infection, presents with not feeling well since last 2 days, having tightness in her lower chest, dull aching type, with also some tenderness in her breast region, went to the clinic and was sent here and was found to have new onset atrial fibrillation. Blood pressure is running high but heart rates under control. Except for the band-like pain, tightness in her lower chest, denies any other chest pain or shortness of breath. Occasionally has some cough attributes it to dry mouth.Has some headaches, . No blurred vision. No nausea, no vomiting. No runny nose, no earache, no sore throat, no difficulty swallowing. No abdominal pain. Appetite is okay. Normal bowel and bladder movements. Ambulates with the help of walker at home. Lives alone but daughters and sons check on her and she also has an aide coming to help her. Currently resting comfortably. Physical Exam (per Admitting): PHYSICAL EXAMINATION: GENERAL: The patient is obese, not in distress. VITAL SIGNS: Temperature 36.5, pulse 72-102, respiratory rate 22, blood pressure 173/110, oxygen 97% on room air. HEENT: No pallor, no icterus. Pupils equal, round and reactive to light. NECK: No JVD, no neck masses, no carotid bruits. CARDIOVASCULAR: S1, S2 heard, irregular rhythm, no murmur, no gallop. RESPIRATORY: Clear to auscultation bilaterally. No wheezing, no crackles. ABDOMEN: Soft. Bowel sounds present. Nontender. No distention. CENTRAL NERVOUS SYSTEM: Cranial nerves II-XII grossly intact. Nonfocal. EXTREMITIES: No lower extremity edema present. Some calf tenderness. Hospital Course This is an 86-year-old female who presents with new onset atrial fibrillation with controlled ventricular response (patient was also managed for hypertensive urgency on admission which resolved after initial presentation with medication) . No DVT within the right or left lower extremity on ultrasound of lower extremities. Patient was initially started on heparin drip on 03/04/17 with plans to bridge to coumadin. Patient was re-evaluated by cardiology service on and there was discussion between cardiology service and patient about anticoagulation plan. Patient anxious for hospital discharge and declined Lovenox as the alternative for IV heparin. As per cardiology service, patient can be discharged with Coumadin alone for anticoagulation. The goal INR is 2 to 3. Patient has anticoagulation clinic follow up appointment 03/06/2017 6:15 PM [facility] Patient has primary care follow up 03/07/2017 3:00 PM Taz Garcia MD Internal Medicine [facility] Patient has cardiology follow up 03/18/2017 9:00 AM Jono Jessica MD Cardiology [facility] Patient should continue carvedilol medication for heart rate control Echocardiogram conclusions on this admission Normal LV chamber size and wall thickness. Normal LV systolic function, EF 60-65%. No segmental left ventricular wall motion abnormalities are noted. Diastolic dyfunction is present based on left atrial enlargement. Aortic valve sclerosis mild, without significant aortic valvular stenosis. Mild mitral regurgitation. Mild tricuspid regurgitation. Moderate left atrial enlargement. Besides atrial fibrillation, patient was evaluated for atypical chest pain (non cardiac chest pain) likely due to musculoskeletal soreness Patient has history of depression and fibromyalgia: Continue Celexa.Tramadol prn Hypertension. Continue Coreg and lisinopril. History of hypothyroidism and multinodular goiter, on methimazole Hyperlipidemia. Continue statin Sinusitis. Continue Flonase. History of herpes virus infection. Continue valacyclovir. History of gastroesophageal reflux disease. Continue Protonix. Discharge to home Total time spent on discharge = 60 minutes This includes examination of the patient, discharge planning, medication reconciliation, and communication with other providers. Discharge Instructions see above
[2017-03-05 14:54] VITALS: BP 110/77; PULSE 68; TEMP 37.1; O2SAT 95
== END 2017-03-05 15:51 | disposition home or self-care (01) | DRG 310 ==
LOC: EDBD 16:55 → C.EDB 16:56 → C.2T 19:17 → ENRESERV 19:30
PROVIDERS: ADMIT Family Medicine; ATTEND Hospitalist
DX: I48.91 Unspecified atrial fibrillation (principal); R07.89 Other chest pain; I16.0 Hypertensive urgency; I10 Essential (primary) hypertension; E78.5 Hyperlipidemia, unspecified; F32.9 Major depressive disorder, single episode, unspecified; M79.7 Fibromyalgia; E05.20 Thyrotoxicosis with toxic multinodular goiter without thyrotoxic crisis or storm; B00.9 Herpesviral infection, unspecified; K21.9 Gastro-esophageal reflux disease without esophagitis; J32.9 Chronic sinusitis, unspecified; R73.9 Hyperglycemia, unspecified; R60.0 Localized edema; M19.90 Unspecified osteoarthritis, unspecified site; H40.9 Unspecified glaucoma; E66.9 Obesity, unspecified; Z68.38 Body mass index [BMI] 38.0-38.9, adult; Z86.73 Personal history of transient ischemic attack (TIA), and cerebral infarction without residual deficits; Z87.19 Personal history of other diseases of the digestive system; Z79.1 Long term (current) use of non-steroidal anti-inflammatories (NSAID); Z79.82 Long term (current) use of aspirin; Z79.899 Other long term (current) drug therapy; Z91.040 Latex allergy status; Z82.49 Family history of ischemic heart disease and other diseases of the circulatory system; Z83.3 Family history of diabetes mellitus; Z80.1 Family history of malignant neoplasm of trachea, bronchus and lung; Z80.3 Family history of malignant neoplasm of breast; Z82.0 Family history of epilepsy and other diseases of the nervous system